=== PATIENT | female | born 1955 | race African-American/Black ===

== ENCOUNTER 2016-05-04 10:17 | Emergency (ER) | payer OTHER ==
[~2016-05-04] VITALS: Ht 167.6 cm; Wt 71.7 kg
[~2016-05-04 10:17] MED LIST: ACETAMINOPHEN325 M1 PO; AMLODIPINE PO; ANTISEIZURE MED; APAP650 PO; ASPIRIN EC81 M1 PO; ATENOLOL 50 MG50 M1 PO; FLONASE 0.05%50 MCG NS; PREDNISONE 20 M20 MG PO; PROVENTIL HFA6.7 G1 INH; VENTOLIN HFA 1818 GM; VENTOLIN HFA 1818 GM INH
[2016-05-04] MEDS ORDERED: AMLODIPINE BESY10 MG PO (10:29)
[2016-05-04] MEDS ORDERED: VIMPAT150 MG PO (10:31)
[2016-05-04] MEDS ORDERED: NAPROSYN500 MG PO (12:22)
== END 2016-05-04 12:36 | disposition home or self-care (01) ==
LOC: ER 10:17
DX: S09.90XA Unspecified injury of head, initial encounter (principal); I10 Essential (primary) hypertension; J45.909 Unspecified asthma, uncomplicated; K21.9 Gastro-esophageal reflux disease without esophagitis; F17.210 Nicotine dependence, cigarettes, uncomplicated; F10.99 Alcohol use, unspecified with unspecified alcohol-induced disorder; Z88.0 Allergy status to penicillin; Z88.2 Allergy status to sulfonamides; W10.9XXA Fall (on) (from) unspecified stairs and steps, initial encounter; Y93.9 Activity, unspecified; Y92.9 Unspecified place or not applicable; Y99.9 Unspecified external cause status

== ENCOUNTER → 2017-08-07 | Outpatient (CLI) | payer OTHER ==
[~2017-08-07] MED LIST changes: +AMLODIPINE BESY10 MG PO; +NAPROSYN500 MG PO; +VIMPAT150 MG PO
== END ==
LOC: MRI 06:07
DX: D32.0 Benign neoplasm of cerebral meninges (principal); Z98.890 Other specified postprocedural states

== ENCOUNTER → 2020-02-25 | Outpatient (CLI) | payer OTHER | LOC: RAD 11:03 | PROVIDERS: ATTEND Family Medicine | DX: Z12.31 Encounter for screening mammogram for malignant neoplasm of breast (principal); N64.89 Other specified disorders of breast ==

== ENCOUNTER → 2020-08-05 | Outpatient (CLI) | payer OTHER | LOC: MRI 12:53 | PROVIDERS: ATTEND Nurse Practitioner | DX: M51.17 Intervertebral disc disorders with radiculopathy, lumbosacral region (principal); M47.26 Other spondylosis with radiculopathy, lumbar region; M25.78 Osteophyte, vertebrae; M48.07 Spinal stenosis, lumbosacral region ==

== ENCOUNTER → 2020-08-18 | Outpatient (CLI) | payer OTHER ==
[~2020-08-18] VITALS: Ht 167.6 cm; Wt 74.3 kg
[~2020-08-18] MED LIST changes: +HYDROCHLOROTHIA25 M1 PO; +METHOCARBAMOL500 M2 PO; +NABUMETONE 500500 M2 PO; +PERCOCET 5-3251 EACH PO
[2020-08-18 09:25] VITALS: BP 145/77
--- NOTE | 2020-08-18 09:36 | NUR ---
Pain Clinic Assessment: 1. History of Osteoarthritis: BACK History of Rheumatoid Arthritis: Not Applicable 2. Height: 5 ft. 6 in. 167.6 cm. Weight: 163.8 lb. oz. 74.299 kg. Patient's BMI: 26.5 3. Vital Signs: BP: 145/77 Pulse: 72 Resp: 18 Temp: 02 Sat: 99 ECG Mon: 4. Pain Intensity: 4 5. Fall Risk: Dizziness: N Needs help standing or walking: N Fallen in the last 3 months: N Fall risk comments: 6. Patient on Blood Thinner: None 7. History of Hypertension: Y 8. Opioid Therapy greater than 6 weeks: N Opiate Contract Signed: 9. Risk Assessment Tool Provided: 1-LOW RISK 10. Functional Assessment Tool: 11. Recreational Drug Use: Never Drug Type: Tobacco Use: Current Every Day Smoker Tobacco Type: Cigarettes Amount or Packs/day: 1 PPD How Many Years: 43 Alcohol Use: Yes Frequency: Weekly Quant: 2 DRINKS
--- NOTE | 2020-08-25 11:26 | HPC ---
[facility] [place] [address] PAIN MANAGEMENT CONSULTATION Name: DAVON SLOAN Room #: REG FADY AdrianaMarga.#: [id number] Admission: 08/18/20 Attend Phys: Kirit Mayer DO Discharge: Date of : 51 Report #: [id number] THIS REPORT FOR: cc: Kirit Mckinley James A. DO Johnson, James E. DO ~ DOC #: [id number] cc: DO Kirit Cr DO DATE OF SERVICE: 08/18/2020 REFERRING PHYSICIAN: Kirit Mckinley DO CHIEF COMPLAINT: Low back pain, left lower extremity pain and paresthesias. HISTORY OF PRESENT ILLNESS: As you know, the patient is a very pleasant 65-year-old female who reports acute onset of low back pain, left lower extremity pain that presented on 08/04/2020. The patient states at that time, she was unable to ambulate or walk. She had to have assistance to go to and from the bathroom and to and from the kitchen. She denied any injury or trauma that may have led to symptom development. She was given hydrocodone by her primary care physician, which provided some improvement in symptoms. She was complaining of no weakness, but mainly just painful to walk or to lift her left lower extremity. She received increase in medication to oxycodone, which again provided minimal benefit. The patient was sent for MRI of the lumbar spine, which showed generalized degenerative changes, no acute abnormalities, though there was noted neural foraminal stenosis at the L5-S1 level causing mass effect upon the L5 nerve root on the left consistent with the patient's symptoms. She was subsequently referred to our clinic to discuss interventional treatment options. The patient reports today her pain is constant. She describes the pain as shooting, aching, sharp, numbness and tingling. Places current pain score at 2/10, daily average at 4/10, worst pain has been an 8/10. The patient states that the pain is exacerbated with lying down and improved with medications. The patient was referred to our clinic to discuss interventional treatment options to address lumbar radicular pain. PAST MEDICAL HISTORY: 1. Asthma. 2. Hypertension. 3. Cerebrovascular accident without residual deficits. PAST SURGICAL HISTORY: section. SOCIAL HISTORY: The patient smokes one and to one-half packs of tobacco per day [address] [address] PAIN MANAGEMENT CONSULTATION Name: DAVON SLOAN Room #: REG CARLOSHunter Kessler#: [id number] Admission: 08/18/20 Attend Phys: Kirit Mayer DO Discharge: Date of : 51 Report #: [id number] and has done so for 43 years. Denies IV or illicit drug use. Admits to occasional alcoholic beverage. She is retired, retired years ago. She is accompanied by her present in the room today. She is not receiving workman's compensation nor is she trying to obtain disability benefits. She is not in litigation in regards to her pain. REVIEW OF SYSTEMS: Positive for low back pain, left lower extremity pain with paresthesias and hypertension. All other review of systems negative for 12-point review of systems other than those listed in history of present illness. Pain impact score 46/70, severe interference of daily activities secondary to pain. ALLERGIES: MOLDS, PENICILLIN, AND SULFA. CURRENT MEDICATIONS: Percocet 5/325 one tab every 8 hours p.r.n. for pain, nabumetone 500 mg twice a day, methocarbamol 500 mg 4 times a day, hydrochlorothiazide 25 mg per day, Vimpat 150 mg b.i.d., amlodipine 10 mg per day, albuterol 2 puffs q. 4 hours p.r.n., aspirin 81 mg per day. IMAGING: MRI of the lumbar spine obtained 08/05/2020 shows degenerative changes of the lumbar spine with hypertrophic facet arthropathy noted at L3-L4, L4-L5, and at L5-S1. Mild central canal stenosis at L3-L4 and L4-L5. There is a left neural foraminal stenosis at L5-S1 with left L5 nerve root impingement. PQRS: The patient has known arthritic changes of the lumbar spine, bilateral knees. No rheumatoid arthritis, placing current pain score 4/10, not a fall risk, has not had a fall in last 3 months. She is not on blood thinners, but is treated for hypertension. She is on opioids, but not chronic in nature. She has a little opiate addiction potential. Pain impact is 46/70 which is a moderate to severe interference of daily activities secondary to pain. PHYSICAL EXAMINATION: VITAL SIGNS: Blood pressure 145/77, pulse 72, respiratory rate 18 and unlabored. The patient is 99% on room air, height 5 feet 6 inches tall, weight 163.8 pounds, BMI calculated 26.5. GENERAL: Well-developed, well-nourished, well-hydrated, 65-year-old female appearing stated age. Pain is rated today, 4/10. HEENT: Normocephalic, atraumatic. Extraocular muscles are intact. 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 The patient is wearing mask in compliance to COVID regulations. LUNGS: Clear. No wheezing, rhonchi or rales. HEART: Regular. No appreciable gallop, no rub. ABDOMEN: Soft. EXTREMITIES: No clubbing, no cyanosis and no edema. [facility] [address] [place] [address] PAIN MANAGEMENT CONSULTATION Name: DAVON SLOAN [facility] [id number] Admission: 08/18/20 Attend Phys: Kirit Mayer DO Discharge: Date of : 51 Report #: [id number] MUSCULOSKELETAL: Lower extremity strength equal and symmetrical 5/5, giveaway strength noted with hip flexion, knee extension on the left due to pain generation. Seated straight leg raising positive on the left. Supine straight leg raising positive on the left. Radha's test is negative. Modified Gaenslen is positive for axial low back pain. Ankle clonus negative. Babinski is negative. ASSESSMENT: 1. Symptomatic lumbar radiculopathy. 2. Severe neural foraminal stenosis of lumbar spine. 3. Facet arthropathy, lumbar spine. 4. Lumbosacral spondylosis with radiculopathy. 5. Chronic axial back pain. 6. Chronic intractable pain. PLAN: 1. Based on today's physical exam, the history the patient provides, the description the patient uses in regards to pain as well as the location of symptoms, it would appear the patient is suffering from lumbar radiculopathy. The findings of the physical exam correlate with the findings of her recent MRI, which shows neural foraminal stenosis at the L5-S1 level with L5 nerve root impingement on the left side, which is reproducible with seated straight leg raising and supine straight leg raising. We discussed the findings of the MRI with the patient today and then discussed the treatment options, we have available to address lumbar radicular pain. The following was discussed with the patient today. 2. We discussed physical therapy, stretching exercises, and core strengthening as a treatment approach. We discussed medication management with suggestions of treatment to include amitriptyline, nortriptyline, Cymbalta, Lyrica, or gabapentin. We discussed lumbar epidural injection under fluoroscopic guidance for which the patient was referred to our clinic. We also discussed spinal cord stimulator therapy and ultimately surgical decompression of the nerve root at the L5-S1 level. After reviewing the risks and benefits of all proposed treatment options, the patient chose to begin with a lumbar epidural injection under fluoroscopic guidance. 3. The patient was advised the risks and benefits of a lumbar epidural injection. These risks include but are not necessarily limited to bleeding, bruising, infection, worsening pain, no relief of pain, also risk of temporary or permanent, muscle weakness, temporary or permanent nerve damage, possible paralysis, post-dural puncture headache and . The patient states she understood and wished to proceed. 4. No medication changes made at today's visit. The patient will continue current medical therapy as prior prescribed. 5. We will plan to see the patient back in followup visit in 30 days. At that time, review the efficacy of today's epidural injection and determine next in the series of epidural injections would be recommended. [address] [address] PAIN MANAGEMENT CONSULTATION Name: DAVON SLOAN Room #: JAY JAY Kessler#: [id number] Admission: 08/18/20 Attend Phys: Kirit Mayer DO Discharge: Date of : 51 Report #: [id number] 6. We wish to thank Dr. Mckinley for the referral of the patient to our clinic. We will keep you apprised of her response to treatment as we address lumbar radicular symptoms. Again, we wish to thank you for the opportunity to see the patient in consultation. PROCEDURE NOTE DESCRIPTION OF PROCEDURE: Lumbar epidural steroid injection under fluoroscopic guidance. This is the first procedure of the first series that the patient is undergoing. After obtaining written consent, the patient was taken back to the fluoroscopy suite, placed in a prone position with pillow under the abdomen to decrease lumbar lordosis. The skin overlying the lumbosacral area was then prepped and draped in aseptic fashion. The Lumbar vertebral interspace was then identified by AP fluoroscopy. The skin and subcutaneous tissue overlying the target site of injection was anesthetized with 3 mL 1% lidocaine. A 20-gauge 3-1/2 inch Tuohy needle was then advanced under fluoroscopic guidance towards the epidural space using a left paramedian approach. The epidural space was identified using loss of resistance to air technique. After negative aspiration for heme or cerebrospinal fluid, a total of 1 mL of Omnipaque was injected. A lumbar epidurogram was confirmed using both AP and lateral fluoroscopy. After negative aspiration for heme or cerebrospinal fluid, 5 mL of a solution containing 2 mL of 40 mg per mL 80 mg total triamcinolone along with 3 mL of lidocaine 1% was injected in increments. Contrast spread was noted in posterior epidural space. The needle was then retracted approximately half way and needle tract flushed with 1 mL of 1% lidocaine. Needle was then removed. There were no apparent sensory or motor deficits in the lower extremity following the procedure. A sterile bandage was placed over the injection site. The heart rate, pulse, oximetry and blood pressure were continuously monitored after the procedure. There were no apparent complications. The patient tolerated the procedure well and was carefully escorted to the recovery room in stable condition. There were no apparent complications. After meeting discharge criteria, the patient was then discharged home. DO JUANCARLOS Leggett/SAADIA [facility] [address] [place] [address] PAIN MANAGEMENT CONSULTATION Name: DAVON SLOAN Room #: REG FADY Kessler#: [id number] Admission: 08/18/20 Attend Phys: Kirit Mayer DO Discharge: Date of : 51 Report #: [id number] <ELECTRONICALLY SIGNED> By: Kirit Mayer DO 08/25/20 1126 [id number] Kirit Mayer DO /nt
== END | disposition home or self-care (01) ==
LOC: PAIN 07:46
PROVIDERS: ATTEND Anesthesiology Pain Medicine
DX: M51.16 Intervertebral disc disorders with radiculopathy, lumbar region (principal); M48.061 Spinal stenosis, lumbar region without neurogenic claudication; M47.27 Other spondylosis with radiculopathy, lumbosacral region; G89.29 Other chronic pain; I10 Essential (primary) hypertension; J45.909 Unspecified asthma, uncomplicated; Z98.890 Other specified postprocedural states; Z79.899 Other long term (current) drug therapy; Z86.73 Personal history of transient ischemic attack (TIA), and cerebral infarction without residual deficits; Z88.0 Allergy status to penicillin; Z88.2 Allergy status to sulfonamides

== ENCOUNTER 2020-09-13 12:22 | Emergency (ER) | payer OTHER ==
[~2020-09-13] VITALS: Ht 167.6 cm; Wt 72.6 kg
[2020-09-13 13:13] LABS: URINE BLOOD 3+ (Negative); URINE GLUCOSE-RANDOM* NEGATIVE (Negative); URINE KETONES TRACE (Negative); URINE PROTEIN (DIPSTICK) 3+ (Negative)
[2020-09-13 13:14] LABS: URINE CLARITY CLOUDY; URINE COLOR RED; URINE LEUKOCYTES-REFLEX 2+ (Negative); URINE NITRITE-REFLEX POSITIVE (Negative)
[2020-09-13 13:16] LABS: ABSOLUTE NEUTROPHILS 2.9 thou/uL (1.4-8.2); BASOPHILS 0.6 % (0.0-2.0); EOSINOPHILS 0.5 % (0.0-3.0); HEMATOCRIT 39.3 % (37.0-47.0); HEMOGLOBIN 13.6 gm/dL (12.0-15.0); MCH 33.5 pg (26.0-34.0); MCHC 34.6 g/dL (28.0-37.0); MONOCYTES 8.6 % (1.0-8.0); PLATELET COUNT 275 thou/uL (150-400); POLYS 60.3 % (36.0-66.0); RBC 4.06 mil/uL (4.20-5.00); RDW 14.3 % (10.5-14.5); WBC 4.8 thou/uL (4.0-11.0)
[2020-09-13 13:17] LABS: ICTOTEST (BILI CONFIRMATORY) Negative (Negative); URINE BILIRUBIN NEGATIVE (Negative)
[2020-09-13 13:18] LABS: CASTS None Seen /LPF (None Seen); SQUAMOUS 0-3 Few /LPF (0-3); URINE WBC-REFLEX 0-5 Rare /HPF (0-5)
[2020-09-13 13:19] LABS: CRYSTALS None Seen /LPF (None Seen); URINE RBC >20 Many /HPF (NONE SEEN)
[2020-09-13 13:28] LABS: CREATININE 1.1 mg/dL (0.6-1.0)
[2020-09-13 13:34] LABS: ALBUMIN 3.8 g/dL (3.4-5.0); TOTAL BILIRUBIN 0.4 mg/dL (0.2-1.0); TOTAL PROTEIN 7.2 g/dL (6.4-8.2)
[2020-09-13] MEDS ORDERED: MACROBID 100 M100 MG PO (14:47)
[2020-09-13] MEDS ORDERED: POTASSIUM20 PO (14:47)
[2020-09-13 15:01] VITALS: BP 156/76
== END 2020-09-13 15:07 | disposition home or self-care (01) ==
LOC: ER 12:22
PROVIDERS: Physician Assistant
DX: N93.8 Other specified abnormal uterine and vaginal bleeding (principal); N39.0 Urinary tract infection, site not specified; E87.6 Hypokalemia; N88.8 Other specified noninflammatory disorders of cervix uteri; F17.210 Nicotine dependence, cigarettes, uncomplicated; Z88.0 Allergy status to penicillin; Z88.2 Allergy status to sulfonamides; Z79.82 Long term (current) use of aspirin; Z79.899 Other long term (current) drug therapy; Z98.890 Other specified postprocedural states

== ENCOUNTER 2020-11-12 08:46 | Emergency (ER) | payer OTHER ==
[~2020-11-12] VITALS: Ht 165.1 cm; Wt 72.6 kg
--- NOTE | ~2020-11-12 | HC ---
[facility] [place] [address] CONSULTATION Name: DAVON SLOAN Room #: DEP [facility]#: [id number] Admission: 11/12/20 Attend Phys: Discharge: 11/12/20 Date of : 51 Report #: [id number] THIS REPORT FOR: cc: Kirit Mckinley James A. DO Khosla, Parveen K. MD ~ DATE OF SERVICE: 11/12/2020 HISTORY OF PRESENT ILLNESS: This is a 65-year-old female patient who was evaluated by me with pretty unusual symptoms. She has changed her symptoms multiple times and the history I get from the patient and the is somewhat different than she has provided before. The patient is very difficult to evaluate because she is pretty evasive in some of the history and the gets angry when we tell her in the plan we are going to follow up because he has very fixed concept. I did tell him that I will be happy to accommodate any other suggestion he has, but then he becomes quiet, but looks very angry. All of it makes very difficult to evaluate the patient and on top of that the patient's symptoms are also pretty unusual. She said that she usually goes to Dr. Kwok, who is a neuroophthalmologist at [facility]. After that, the history is very vague. She said she has lines in front of the eyes. She has some fixed visual loss. It is not clear what that visual loss is. She said those lines disappeared today. She said that neuroophthalmologist has told her that she had a stroke in the past and that is why she had those lines. When I asked her how much visual problem is new and how much is old. The answer was extremely variable from the fact that visual problem is actually better today to that the lines are gone, but the vision is about the same to it is worse, but in some undefined fashion. She says she woke up with ataxia today. She had difficulty walking. She did not complain of any focal deficit or any double vision to me. When I asked her if she is better she said she is better, but she did not know much about that, but later on, I made her walk and she was able to walk fairly well. REVIEW OF SYSTEMS: Also indicate that this patient goes to a neurologist. The neurologist is at [facility]. She indicates that she was put on medication. It looks like she is on Vimpat 150 mg p.o. b.i.d. and she is on that medication for a long time. She had a single seizure and I assume that they left her on medication because she has a meningioma. She does have a meningioma, but I reviewed his MRI reports since several years back and she has that known meningioma for several years and they have done multiple CT scans and it has not changed much. 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 The best I can tell that appeared to be because of asthma. I do not have detailed notes in that regard. There is one note which described cortical blindness in this patient after that hypoxic injury. She denies any anxiety or depression. [address] [address] CONSULTATION Name: NATHALIADAVON Room #: DEP [place]#: [id number] Admission: 11/12/20 Attend Phys: Discharge: 11/12/20 Date of : 51 Report #: [id number] She said she does not take any medication for that. She does have hypertension and she takes medications for that. That was her relevant 14-point review of system. PAST MEDICAL HISTORY: Positive for meningioma, which has been described for a long time and is more or less unchanged. FAMILY HISTORY: Unremarkable. SOCIAL HISTORY: She is . is at bedside and I talked to him. PHYSICAL EXAMINATION: Indicate that she is alert. She is responsive. She can follow simple commands. Her speech looks intact. She believes her memory is at her baseline. Cranial nerve examination is very unusual. I do not know what this cranial nerve examination is from especially visual acuity, visual field. I do not see any facial weakness. She can move all 4 extremities and does not appear to be ataxic and I cannot have a good look at the patient's fundus. I tried to do the sensory system examination. I could not get a sensory system examination because of the response is somewhat unusual. Her cardiac examinations appear unremarkable. No respiratory difficulty was noticed in this patient. She is reasonably well-developed individual. Her blood pressure was 122/71, respiration was ____, pulse is 64. I did make this patient walk and to me she is able to walk and she looks reasonably stable on walking. She also was able to walk with 1 foot in front of another. She thinks she has improved. I do not know what her baseline is. LABORATORY DATA: Indicate that this patient's hemoglobin is 13.2. Her potassium is a trace low at 3.4, creatinine is a trace high at 1.2. I did not see any sed rate anywhere. She did have a TSH one time. I reviewed the MRI and MRA with Dr. Loja, who is a radiologist at [facility]. The patient's films were read by Dr. Mclean, who is a neuroradiologist. None of us think there is any evidence of any acute stroke in this patient. MRA is also unremarkable. I discussed with the patient and the that there is no evidence of any acute stroke on MRI. I recommended that the next step will be to get an ENT evaluation to see if there is any ENT pathology, which can cause her ataxia. got very upset and said it is not ENT pathology. I told her that is how we go. First thing we rule out is a stroke for dizziness and ataxia and if that is excluded, then we go to ENT pathology and if that is excluded, then we go to some other pathologies. This patient to the emergency room physician has complained of dizziness, diplopia and difficulty with ambulation because of dizziness. History is somewhat variable. [facility] [address] [place] [address] CONSULTATION Name: DAVON SLOAN Jean [id number] Admission: 11/12/20 Attend Phys: Discharge: 11/12/20 Date of : 51 Report #: [id number] I do not think any more stroke workup is needed in this patient as the study is pretty much unremarkable. She needs evaluation for other thing. She needs an evaluation by an cost and sales record supervisor to see why her ophthalmology symptoms have changed and whether that has changed. I suggested to Emergency Room doctor that they contact her neuroophthalmologist, Dr. Kwok and see what kind of pathology they have and what their impression is. 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 She has her own neurologist. She should follow up with that. She needs an ENT evaluation. If she deteriorates or does not become better and no ENT cause is found, then she will need some other workup depending upon her symptoms at that time. I asked her and she is not complaining of any symptoms of neck and back pain and she had those symptoms in the past and I noticed that one time she had even a fall and she had multiple testing done and one of the testing was CT of the C-spine and that was unremarkable and that was in 2017. I did ask the ER doctor to check a sed rate or CRP before she goes, otherwise, neurologically, I do not have any other recommendation and she should be evaluated and managed by other physicians including cost and sales record supervisor, ENT and if those causes are excluded, than other consultants also may have to be involved, depending upon the input from other physician and the course she takes. She should see an cost and sales record supervisor, her own neurologist as well as ENT physician as soon as possible. Whether she needs to be admitted or sent home partly depends upon what the family and the patient wants to do and whether she is considered stable on her feet to stay and whether other workup needs to be done in this patient and ____. I will defer that evaluation and management and decision whether sending the patient home or keeping her here to the emergency room doctor, but I do not think any further workup for the stroke is indicated at this moment except for his sed rate, and she needs to be evaluated by our pathologist for her symptoms because there are multiple symptoms. I will defer that to ER physician as well as his other consultants and confine myself to the question of a CVA and this patient does not appear to have CVA and meningioma is an incidental and longstanding finding. Since She does not have any CVA or any carotid or intracranial occlusion I will sign off and I will suggest evaluating and working up other causes for her dizziness and her multiple other symptoms. Thank you very much for this referral. By: 1245 00 Matthew Phelps MD /nt
[~2020-11-12 08:46] MED LIST changes: +MACROBID 100 M100 MG PO; +POTASSIUM20 PO
[2020-11-12 09:15] LABS: URINE BILIRUBIN NEGATIVE (Negative); URINE BLOOD NEGATIVE (Negative); URINE CLARITY CLEAR; URINE COLOR YELLOW; URINE GLUCOSE-RANDOM* NEGATIVE (Negative); URINE KETONES NEGATIVE (Negative); URINE LEUKOCYTES-REFLEX NEGATIVE (Negative); URINE NITRITE-REFLEX NEGATIVE (Negative); URINE PROTEIN (DIPSTICK) NEGATIVE (Negative); URINE UROBILINOGEN 0.2 E.U./dl (0.2-1.0)
[2020-11-12 09:23] LABS: ABSOLUTE NEUTROPHILS 2.4 thou/uL (1.4-8.2); BASOPHILS 1.6 % (0.0-2.0); EOSINOPHILS 1.5 % (0.0-3.0); HEMATOCRIT 38.3 % (37.0-47.0); HEMOGLOBIN 13.2 gm/dL (12.0-15.0); MCH 34.1 pg (26.0-34.0); MCHC 34.6 g/dL (28.0-37.0); MCV 98.6 fL (80.0-100.0); MONOCYTES 10.4 % (1.0-8.0); PLATELET COUNT 333 thou/uL (150-400); POLYS 56.5 % (36.0-66.0); RBC 3.88 mil/uL (4.20-5.00); RDW 13.7 % (10.5-14.5); WBC 4.3 thou/uL (4.0-11.0)
[2020-11-12 09:36] LABS: ANION GAP 6 mmol/L (7-16); BUN 15 mg/dL (7-18); CALCIUM 8.8 mg/dL (8.5-10.1); CHLORIDE 101 mmol/L (98-107); CO2 29 mmol/L (21-32); CREATININE 1.2 mg/dL (0.6-1.0); GLUCOSE 111 mg/dL (74-106); POTASSIUM 3.4 mmol/L (3.5-5.1); SODIUM 136 mmol/L (136-145)
[2020-11-12 09:47] LABS: ALBUMIN 3.6 g/dL (3.4-5.0); SGOT 19 U/L (15-37); SGPT 32 U/L (14-59); TOTAL BILIRUBIN 0.4 mg/dL (0.2-1.0); TOTAL PROTEIN 6.9 g/dL (6.4-8.2); TROPONIN-I <0.06 ng/mL (<0.06)
[2020-11-12 14:39] VITALS: BP 118/69
== END 2020-11-12 14:40 | disposition home or self-care (01) ==
LOC: ER 08:46
PROVIDERS: Emergency Medicine
DX: H53.8 Other visual disturbances (principal); R27.0 Ataxia, unspecified; I10 Essential (primary) hypertension; F17.210 Nicotine dependence, cigarettes, uncomplicated; Z79.51 Long term (current) use of inhaled steroids; Z79.899 Other long term (current) drug therapy; Z79.82 Long term (current) use of aspirin; Z88.0 Allergy status to penicillin; Z88.2 Allergy status to sulfonamides

== ENCOUNTER → 2021-04-28 | Outpatient (CLI) | payer OTHER | LOC: BC 10:29 | PROVIDERS: ATTEND Family Medicine | DX: Z12.31 Encounter for screening mammogram for malignant neoplasm of breast (principal) ==